=== PATIENT | male | born 1985 | race Caucasian/White ===

== ENCOUNTER 2017-03-25 09:31 | Emergency (ER) | payer OTHER ==
[2017-03-25 10:10] VITALS: BP 135/85
[2017-03-25] MEDS ORDERED: Ibuprofen TAB* 400 MG PO ONE (10:16)
--- NOTE | 2017-03-25 10:17 | ED ---
Respiratory - HPI Summary HPI Summary: 32 yr old male with the complaint of malaise, myalgias, nasal congestion, cough , fever. The patient states he has been ill for about one day. He works on heavy equipment. No other complaints. - History of Current Complaint Chief Complaint: UCRespiratory Stated Complaint: SORE THROAT,CHEST CONGESTION Time Seen by Provider: 03/25/17 10:15 Pain Intensity: 6 - Allergy/Home Medications Allergies/Adverse Reactions: Allergies Allergy/AdvReac Type Severity Reaction Status Date / Time No Known Allergies Allergy Verified 03/25/17 10:02 Home Medications: Home Medications Pseudoephedrine HCl [Decongestant] 30 mg PO Q4H PRN 03/25/17 [History Confirmed 03/25/17] PMH/Surg Hx/FS Hx/Imm Hx - Surgical History Hx Anesthesia Reactions: No Infectious Disease History: No Infectious Disease History: Denies: Traveled Outside the [place] in Last 30 Days - Family History Known Family History: Positive: None - Social History Lives: With Family Alcohol Use: None Substance Use Type: Reports: None Smoking Status (MU): Never Smoked Tobacco Review of Systems Positive: Fever, Chills Positive: Sore Throat, Nasal Discharge Positive: Cough All Other Systems Reviewed And Are Negative: Yes Physical Exam Triage Information Reviewed: Yes Vital Signs On Initial Exam: Initial Vitals Temp Pulse Resp BP Pulse Ox 100.6 F 110 20 135/85 100 03/25/17 10:03 03/25/17 10:03 03/25/17 10:03 03/25/17 10:03 03/25/17 10:03 Vital Signs Reviewed: Yes Appearance: Positive: Well-Appearing, No Pain Distress Skin: Positive: Warm, Skin Color Reflects Adequate Perfusion Head/Face: Positive: Normal Head/Face Inspection Eyes: Positive: EOMI ENT: Positive: Nasal congestion, TMs normal Respiratory/Lung Sounds: Positive: Clear to Auscultation, Breath Sounds Present Cardiovascular: Positive: RRR. Negative: Murmur Abdomen Description: Positive: Nontender Musculoskeletal: Positive: Strength/ROM Intact Neurological: Positive: Sensory/Motor Intact, Alert, Oriented to Person Place, Time, CN Intact II-III Psychiatric: Positive: Normal - Maggi Coma Scale Best Eye Response: 4 - Spontaneous Best Motor Response: 6 - Obeys Commands Best Verbal Response: 5 - Oriented Coma Scale Total: 15 Diagnostics - Vital Signs Vital Signs Temp Pulse Resp BP Pulse Ox 03/25/17 10:03 100.6 F 110 20 135/85 100 - Laboratory Lab Statement: Any lab studies that have been ordered have been reviewed, and results considered in the medical decision making process. Disposition - Course Course Of Treatment: 32 yr old with Influenza B. Rx Tamiflu. DC home. - Diagnoses Provider Diagnoses: Influenza Discharge - Discharge Plan Condition: Good Disposition: HOME Prescriptions: Oseltamivir CAP* [Tamiflu CAP*] 75 mg PO BID #10 cap Patient Education Materials: Influenza (ED) Referrals: [facility] [Primary [facility] Provider] - 1 Day
== END 2017-03-25 10:51 | disposition home or self-care (01) ==
LOC: UCCORT 09:31
DX: J11.1 Influenza due to unidentified influenza virus with other respiratory manifestations (principal)
CPT/HCPCS: 87502; 99212; A9270-GY; G0463